=== PATIENT | male | born 1980 | race Caucasian/White ===

== ENCOUNTER 2016-05-19 14:49 | Emergency (ER) | payer MEDICAID ==
[2016-05-19] MEDS ORDERED: Morphine 10 MG/ML Syringe IVPUSH ONE ×3 (15:01→18:07)
[2016-05-19] MEDS ORDERED: Ondansetron 4 MG/2 ML SDV IVPUSH ONE (15:02)
[2016-05-19] MEDS ORDERED: Pantoprazole 40 MG Vial IVPUSH ONE (15:02)
[2016-05-19] MEDS: Sodium Chloride 0.9% 10 ML Syringe FLUSH PRN ×2 (15:12→18:26)
[2016-05-19 15:25] LABS: CHLORIDE,CL 104 mmol/L (98-107); SODIUM,NA 139 mmol/L (136-145)
[2016-05-19] MEDS ORDERED: Iopamidol 612 MG/ML 100 ML Bottle IVPUSH ONE (15:51)
--- NOTE | 2016-05-19 16:07 | EDM.PDOC ---
ED HPI GENERAL MEDICAL PROBLEM - General Chief Complaint: Chest Pain Stated Complaint: Chest Pain Time Seen by Provider: 05/19/16 14:58 Source of Information: Reports: Patient, EMS, Significant Other History Limitations: Reports: No limitations - History of Present Illness INITIAL COMMENTS - FREE TEXT/NARRATIVE: Patient comes by EMS with complaint of central chest pain. Was sent here by [facility]. Given two Nitro as well as 324mg ASA by EMS. Also received two doses of Fentanyl. Some PVCs noted while en route. Patient says Nitro did not help pain. Noted to have hypotension after NTG. Pain has been present since yesterday. Points to central lower chest area. Says pain does not radiated. Does have SOB which is worse with activity. Says he has coughed up blood at times recently. Some phlegm also. Smoker. 1ppd for 30 years per patient. Eating/drinking/position change do not affect pain. Deep breath makes pain worse. Has felt hot/cold/sweaty at times. No nausea/emesis/diarrhea. No changes. Denies recent illness. No specific fever. No neuro changes. Denies headache. Did see "spots" in vision at times. Does not use ETOH or drugs. No other complaint of pain. No personal history of CAD however has strong family history of CAD. History respiratory infections as well as anxiety/depression. stated afterwards that patient HAS been ill for awhile and has intermittently had bloody stools as well as coughing up blood at times. SOB has been present for quite awhile. Tried an inhaler belonging to a family member and it did not help. Treatments [employer]ATE[employer]: Reports: EKG, IV/IO, Other medication(s), Oxygen, See EMS Report - Related Data Allergies Allergy/AdvReac Type Severity Reaction Status Date / Time Penicillins Allergy Hives Verified 05/19/16 14:58 Home Meds: Home Meds . [No Known Home Meds] 05/19/16 [History] Past Medical History HEENT History: Reports: Impaired vision Other HEENT History: wears glasses Cardiovascular History: Reports: None Respiratory History: Reports: Bronchitis, recurrent, Pneumonia, recurrent Gastrointestinal History: Reports: None Genitourinary History: Reports: None Musculoskeletal History: Reports: Fracture Other Musculoskeletal History: fractured right wrist; fractured left tibial plateau Neurological History: Reports: None Psychiatric History: Reports: Anxiety, Depression, Psych Hospitalization(s) Endocrine/Metabolic History: Reports: None Hematologic History: Reports: None Immunologic History: Reports: None Oncologic (Cancer) History: Reports: None Dermatologic History: Reports: None - Infectious Disease History Infectious Disease History: Reports: Chicken pox - Past Surgical History Head Surgeries/Procedures: Reports: None Respiratory Surgical History: Reports: None GI Surgical History: Reports: None Musculoskeletal Surgical History: Reports: Shoulder surgery Other Musculoskeletal Surgeries/Procedures:: right shoulder decompression Social & Family History - Family History Family Medical History: Noncontributory Cardiac: Reports: Hypertension, [place] Oncologic: Reports: Cervix - Tobacco Use Smoking Status *Q: Current Every Day Smoker Years of Tobacco use: 30 Packs/Tins Daily: 1 Used Tobacco, but Quit: No Second Hand Smoke Exposure: Yes - Alcohol Use Days Per Week of Alcohol Use: 0 - Recreational Drug Use Recreational Drug Use: No Drug Use in Last 12 Months: No - Living Situation & Occupation Living situation: Reports: with family, Occupation: employed ED ROS GENERAL - Review of Systems Review Of Systems: See Below Constitutional: Reports: chills, malaise, diaphoresis, decreased appetite. Denies: fever, weakness, fatigue, weight loss, weight gain HEENT: Reports: Vision change (saw spots ealier at times) Respiratory: Reports: Shortness of Breath, Pleuritic Chest Pain, Cough (smoker) , Sputum, Hemoptysis. Denies: Wheezing Cardiovascular: Reports: Chest pain, Dyspnea on exertion, Lightheadedness (for last few days). Denies: Edema, Palpitations, Syncope GI/Abdominal: Reports: Bloody stool. Denies: Abdominal pain, Diarrhea, Hematemesis, Nausea, Vomiting : Reports: no symptoms Musculoskeletal: Reports: no symptoms Skin: Reports: no symptoms Neurological: Denies: Confusion, Headache, Paresthesia, Syncope, Trouble Speaking, Change in Speech, Gait Disturbance Psychiatric: Reports: No symptoms ED EXAM, GENERAL - Physical Exam Exam: See Below Exam Limited By: No limitations General Appearance: alert, WD/WN, anxious Eye Exam: bilateral eye: EOMI, PERRL Ears: normal external exam, normal canal, hearing grossly normal, normal TMs Nose: normal inspection Throat/Mouth: Normal inspection, Normal lips, Normal oropharynx, Normal voice, No airway compromise Head: atraumatic, normocephalic Neck: normal inspection, supple, non-tender, full range of motion. No: carotid bruit, lymphadenopathy (L), lymphadenopathy (R) Respiratory/Chest: no respiratory distress, lungs clear, no accessory muscle use , chest non-tender, respiratory distress Cardiovascular: normal peripheral pulses, regular rate, rhythm, no edema, no JVD , no murmur Peripheral Pulses: 2+: radial (L), radial (R) GI/Abdominal: soft, tender (mild diffuse TTP, more pronounced LUQ and LLQ). No : no abnormal bruit, no mass, distended, guarding, rigid, rebound (Male) Exam: Deferred Rectal (Males) Exam: Normal rectal tone, Prostate normal, Heme - stool Back Exam: normal inspection Extremities: normal inspection, normal range of motion, non-tender, no pedal edema, normal capillary refill Neurological: alert, oriented, normal cognition, normal reflexes, no motor/ sensory deficits Psychiatric: anxious Skin Exam: Warm, Dry, Intact, Normal color EKG INTERPRETATION EKG Date: 05/19/16 Time: 14:57 Rhythm: other (sinus rhythm. PACs intermittently.) Rate (beats/min): 100 [place]: normal P-wave: present QRS: normal ST-T: normal QT: normal Comparison: NA - no prior EKG EKG Interpretation Comments: No acute changes suggestive of ND/ischemia Course - Vital Signs Last Recorded V/S: Last Vital Signs Temp 37.1 C 05/19/16 14:52 Pulse 76 05/19/16 18:05 Resp 18 05/19/16 18:05 BP 125/90 05/19/16 18:05 Pulse Ox 100 05/19/16 18:05 - Orders/Labs/Meds Orders: Active Orders 24 hr Category Date Time Status EKG Documentation Completion [RC] ASDIRECTED Care 05/19/16 15:01 Active Abdomen Pelvis w Cont [CT] Stat Exams 05/19/16 15:41 Taken Chest w Cont [CT] Stat Exams 05/19/16 15:40 Taken TROPONIN I [CHEM] Stat Lab 05/19/16 18:44 Ordered Sodium Chloride 0.9% [Saline Flush] Med 05/19/16 15:06 Active 10 ml FLUSH ASDIRECTED PRN Medication Orders Sodium Chloride (Saline Flush) 10 ml FLUSH ASDIRECTED PRN PRN Reason: Keep Vein Open Last Admin: 05/19/16 18:26 Dose: 10 ml Admin: 05/19/16 15:12 Dose: 10 ml Labs: Laboratory Tests 05/19/16 05/19/16 05/19/16 Range/Units 14:50 14:50 14:50 WBC 6.5 (4.0-10.2) K/uL RBC 5.62 H (4.33-5.41) M/uL Hgb 16.1 D (13.1-16.8) g/dL Hct 47.4 (39.0-49.0) % MCV 84.3 (84.0-98.0) fL MCH 28.6 (28.2-33.3) pg MCHC 34.0 (31.7-36.0) g/dL RDW 13.6 (11.2-14.1) % Plt Count 198 (150-350) K/uL Neut % (Auto) 56.0 (45.0-80.0) % Lymph % (Auto) 33.0 (10.0-50.0) % [place] % (Auto) 6.1 (2.0-14.0) % Eos % (Auto) 4.4 (0.0-5.0) % Baso % (Auto) 0.5 (0.0-2.0) % Neut # (Auto) 3.65 (1.40-7.00) K/uL Lymph # (Auto) 2.15 (0.50-3.50) K/uL [place] # (Auto) 0.40 (0.00-1.00) K/uL Eos # (Auto) 0.29 (0.00-0.50) K/uL Baso # (Auto) 0.03 (0.00-0.20) K/uL PT (9.8-11.7) SEC INR D-Dimer, Quantitative 165 (0-400) ng/mL Sodium 139 (136-145) mmol/L Potassium 3.9 (3.5-5.1) mmol/L Chloride 104 (98-107) mmol/L Carbon Dioxide 22.6 (21.0-32.0) mmol/L BUN 16 (7-18) mg/dL Creatinine 0.91 (0.51-1.17) mg/dL Est Cr Clr Drug Dosing TNP Estimated GFR (MDRD) > 60 mL/min Glucose 132 H (74-106) mg/dL Lactic Acid (0.4-2.0) mmol/L Calcium 9.1 (8.5-10.1) mg/dL Total Bilirubin 0.5 (0.2-1.0) mg/dL AST 33 (15-37) U/L ALT 51 (12-78) U/L Alkaline Phosphatase 142 H (46-116) IU/L Creatine Kinase 134 (26-308) U/L Creatine Kinase Index 0.4 (0.0-2.5) % CK-MB (CK-2) 0.50 (0.00-3.60) ng/mL Troponin I 0.000 (0.000-0.056) ng/mL Total Protein 8.1 (6.4-8.2) g/dL Albumin 3.9 (3.4-5.0) g/dL Specimen Type Urine Color Urine Appearance Urine pH (5.0-9.0) Ur Specific [place] (1.005-1.030) Urine Protein (NEGATIVE) mg/dL Urine Glucose (UA) (NEGATIVE) mg/dL Urine Ketones (NEGATIVE) mg/dL Urine Occult Blood (NEGATIVE) Urine Nitrite (NEGATIVE) Urine Bilirubin (NEGATIVE) Urine Urobilinogen (0.2-1.0) E.U./dL Ur Leukocyte Esterase (NEGATIVE) Urine RBC /HPF Urine WBC /HPF Ur Epithelial Cells /LPF Urine Bacteria (NONE TO FEW) /HPF Urine Mucus (NEGATIVE) /LPF Urine Opiates Screen (NEGATIVE) Urine Methadone Screen (NEGATIVE) U Acetaminophen Screen (NEGATIVE) Ur Barbiturates Screen (NEGATIVE) Ur Tricyclics Screen (NEGATIVE) Ur Phencyclidine Scrn (NEGATIVE) Ur Amphetamine Screen (NEGATIVE) U Methamphetamines Scrn (NEGATIVE) U Benzodiazepines Scrn (NEGATIVE) U Cocaine Metab Screen (NEGATIVE) U Marijuana (THC) Screen (NEGATIVE) 05/19/16 05/19/16 05/19/16 Range/Units 14:50 14:50 15:37 WBC (4.0-10.2) K/uL RBC (4.33-5.41) M/uL Hgb (13.1-16.8) g/dL Hct (39.0-49.0) % MCV (84.0-98.0) fL MCH (28.2-33.3) pg MCHC (31.7-36.0) g/dL RDW (11.2-14.1) % Plt Count (150-350) K/uL Neut % (Auto) (45.0-80.0) % Lymph % (Auto) (10.0-50.0) % [place] % (Auto) (2.0-14.0) % Eos % (Auto) (0.0-5.0) % Baso % (Auto) (0.0-2.0) % Neut # (Auto) (1.40-7.00) K/uL Lymph # (Auto) (0.50-3.50) K/uL [place] # (Auto) (0.00-1.00) K/uL Eos # (Auto) (0.00-0.50) K/uL Baso # (Auto) (0.00-0.20) K/uL PT 10.5 (9.8-11.7) SEC INR 1.0 D-Dimer, Quantitative (0-400) ng/mL Sodium (136-145) mmol/L Potassium (3.5-5.1) mmol/L Chloride (98-107) mmol/L Carbon Dioxide (21.0-32.0) mmol/L BUN (7-18) mg/dL Creatinine (0.51-1.17) mg/dL Est Cr Clr Drug Dosing Estimated GFR (MDRD) mL/min Glucose (74-106) mg/dL Lactic Acid 3.1 H (0.4-2.0) mmol/L Calcium (8.5-10.1) mg/dL Total Bilirubin (0.2-1.0) mg/dL AST (15-37) U/L ALT (12-78) U/L Alkaline Phosphatase (46-116) IU/L Creatine Kinase (26-308) U/L Creatine Kinase Index (0.0-2.5) % CK-MB (CK-2) (0.00-3.60) ng/mL Troponin I (0.000-0.056) ng/mL Total Protein (6.4-8.2) g/dL Albumin (3.4-5.0) g/dL Specimen Type Urine Color Urine Appearance Urine pH (5.0-9.0) Ur Specific [place] (1.005-1.030) Urine Protein (NEGATIVE) mg/dL Urine Glucose (UA) (NEGATIVE) mg/dL Urine Ketones (NEGATIVE) mg/dL Urine Occult Blood (NEGATIVE) Urine Nitrite (NEGATIVE) Urine Bilirubin (NEGATIVE) Urine Urobilinogen (0.2-1.0) E.U./dL Ur Leukocyte Esterase (NEGATIVE) Urine RBC /HPF Urine WBC /HPF Ur Epithelial Cells /LPF Urine Bacteria (NONE TO FEW) /HPF Urine Mucus (NEGATIVE) /LPF Urine Opiates Screen Positive H (NEGATIVE) Urine Methadone Screen Negative (NEGATIVE) U Acetaminophen Screen Negative (NEGATIVE) Ur Barbiturates Screen Negative (NEGATIVE) Ur Tricyclics Screen Negative (NEGATIVE) Ur Phencyclidine Scrn Negative (NEGATIVE) Ur Amphetamine Screen Negative (NEGATIVE) U Methamphetamines Scrn Negative (NEGATIVE) U Benzodiazepines Scrn Negative (NEGATIVE) U Cocaine Metab Screen Negative (NEGATIVE) U Marijuana (THC) Screen Positive H (NEGATIVE) 05/19/16 05/19/16 Range/Units 15:37 19:00 WBC (4.0-10.2) K/uL RBC (4.33-5.41) M/uL Hgb (13.1-16.8) g/dL Hct (39.0-49.0) % MCV (84.0-98.0) fL MCH (28.2-33.3) pg MCHC (31.7-36.0) g/dL RDW (11.2-14.1) % Plt Count (150-350) K/uL Neut % (Auto) (45.0-80.0) % Lymph % (Auto) (10.0-50.0) % [place] % (Auto) (2.0-14.0) % Eos % (Auto) (0.0-5.0) % Baso % (Auto) (0.0-2.0) % Neut # (Auto) (1.40-7.00) K/uL Lymph # (Auto) (0.50-3.50) K/uL [place] # (Auto) (0.00-1.00) K/uL Eos # (Auto) (0.00-0.50) K/uL Baso # (Auto) (0.00-0.20) K/uL PT (9.8-11.7) SEC INR D-Dimer, Quantitative (0-400) ng/mL Sodium (136-145) mmol/L Potassium (3.5-5.1) mmol/L Chloride (98-107) mmol/L Carbon Dioxide (21.0-32.0) mmol/L BUN (7-18) mg/dL Creatinine (0.51-1.17) mg/dL Est Cr Clr Drug Dosing Estimated GFR (MDRD) mL/min Glucose (74-106) mg/dL Lactic Acid (0.4-2.0) mmol/L Calcium (8.5-10.1) mg/dL Total Bilirubin (0.2-1.0) mg/dL AST (15-37) U/L ALT (12-78) U/L Alkaline Phosphatase (46-116) IU/L Creatine Kinase (26-308) U/L Creatine Kinase Index (0.0-2.5) % CK-MB (CK-2) (0.00-3.60) ng/mL Troponin I 0.000 (0.000-0.056) ng/mL Total Protein (6.4-8.2) g/dL Albumin (3.4-5.0) g/dL Specimen Type Urincc Urine Color Dark yellow Urine Appearance Clear Urine pH 7.0 (5.0-9.0) Ur Specific [place] 1.020 (1.005-1.030) Urine Protein 30 H (NEGATIVE) mg/dL Urine Glucose (UA) Negative (NEGATIVE) mg/dL Urine Ketones Negative (NEGATIVE) mg/dL Urine Occult Blood Negative (NEGATIVE) Urine Nitrite Negative (NEGATIVE) Urine Bilirubin Negative (NEGATIVE) Urine Urobilinogen 0.2 (0.2-1.0) E.U./dL Ur Leukocyte Esterase Negative (NEGATIVE) Urine RBC 0-5 /HPF Urine WBC 0-5 /HPF Ur Epithelial Cells Few /LPF Urine Bacteria Few (NONE TO FEW) /HPF Urine Mucus Many H (NEGATIVE) /LPF Urine Opiates Screen (NEGATIVE) Urine Methadone Screen (NEGATIVE) U Acetaminophen Screen (NEGATIVE) Ur Barbiturates Screen (NEGATIVE) Ur Tricyclics Screen (NEGATIVE) Ur Phencyclidine Scrn (NEGATIVE) Ur Amphetamine Screen (NEGATIVE) U Methamphetamines Scrn (NEGATIVE) U Benzodiazepines Scrn (NEGATIVE) U Cocaine Metab Screen (NEGATIVE) U Marijuana (THC) Screen (NEGATIVE) Meds: Medications Generic Name Dose Route Start Last Admin Trade Name Freq PRN Reason Stop Dose Admin Sodium Chloride 10 ml 05/19/16 15:06 05/19/16 18:26 Saline Flush FLUSH 10 ml ASDIRECTED PRN Administration Keep Vein Open Discontinued Medications Generic Name Dose Route Start Last Admin Trade Name Freq PRN Reason Stop Dose Admin Sodium Chloride 1,000 mls @ 999 mls/hr 05/19/16 16:08 05/19/16 16:15 Normal Saline IV 05/19/16 17:08 999 mls/hr .BOLUS ONE Administration Iopamidol 100 ml 05/19/16 15:51 05/19/16 16:54 Isovue-300 (61%) IVPUSH 05/19/16 15:52 100 ml ONETIME ONE Administration Morphine Sulfate 5 mg 05/19/16 15:01 05/19/16 15:10 Morphine IVPUSH 05/19/16 15:02 5 mg ONETIME ONE Administration Morphine Sulfate 5 mg 05/19/16 16:07 05/19/16 16:11 Morphine IVPUSH 05/19/16 16:08 5 mg ONETIME ONE Administration Morphine Sulfate 5 mg 05/19/16 18:07 05/19/16 18:25 Morphine IVPUSH 05/19/16 18:08 5 mg ONETIME ONE Administration Ondansetron HCl 4 mg 05/19/16 15:02 05/19/16 15:09 Zofran IVPUSH 05/19/16 15:03 4 mg ONETIME ONE Administration Pantoprazole Sodium 40 mg 05/19/16 15:02 05/19/16 15:10 Protonix Iv IVPUSH 05/19/16 15:03 40 mg ONETIME ONE Administration - Re-Assessments/Exams Free Text/Narrative Re-Assessment/Exam: 05/19/16 19:[address] scan of chest/abdomen to rule out dissection based on his exhibited amount of pain upon arrival as well as giving history of coughing up blood/passing blood in stool. Negative reading at 18:15 per radiology. Labs overall unremarkable except for lactic acid 3.1 Patient received intermittent morphine doses. Noted to have improved respiratory rate/bp/heart rate. Appeared more comfortable and relaxed but would still rate pain as a 7 on scale of 1-10. At this point in time given the persistence of the pain complaint, strong family history of CAD, the elevated lactic acid, and history of coughing up the bloody mucus and passing blood in stools, [facility] was contacted. Patient was accepted for admission to [facility] by . Second troponin requested at 1900. Patient told of plan to go to [facility]. At this point in time he said he would refuse to go by EMS. Risks outlined to patient, including continued possibility that this could be cardiac-related or be caused by some other serious problem given the elevated lactic acid. Patient still said he would refuse EMS transfer and was willing to sign AMA and go home and get his own ride to [facility]. Free Text/Narrative Re-Assessment/Exam: 05/19/16 19:33 Second troponin negative. Patient says he will go to [facility] but will go by private vehicle only. Refuses EMS transport. VS remained improved. Patient more comfortable. Departure - Departure Time of Disposition: 19:34 Disposition: DC/Tfer to Acute Hospital 02 Condition: good Clinical Impression: Atypical chest pain Abdominal pain Qualifiers: Abdominal location: generalized Qualified Code(s): R10.84 - Generalized abdominal pain Referrals: Angus Jeffries PA [Primary Care Provider] - Forms: ED Department Discharge, Interfacility Transfer EMTALA Additional Instructions: Drive directly to [facility]. They are waiting for you. Do not stop along the way to get food/drink or otherwise delay your trip. - My Orders Last 24 Hours: My Active Orders 05/19/16 15:01 EKG Documentation Completion [RC] ASDIRECTED 05/19/16 15:06 Sodium Chloride 0.9% [Saline Flush] 10 ml FLUSH ASDIRECTED PRN 05/19/16 15:40 Chest w Cont [CT] Stat 05/19/16 15:41 Abdomen Pelvis w Cont [CT] Stat 05/19/16 18:44 TROPONIN I [CHEM] Stat - Assessment/Plan Last 24 Hours: My Active Orders 05/19/16 15:01 EKG Documentation Completion [RC] ASDIRECTED 05/19/16 15:06 Sodium Chloride 0.9% [Saline Flush] 10 ml FLUSH ASDIRECTED PRN 05/19/16 15:40 Chest w Cont [CT] Stat 05/19/16 15:41 Abdomen Pelvis w Cont [CT] Stat 05/19/16 18:44 TROPONIN I [CHEM] Stat
[2016-05-19] MEDS ORDERED: Sodium Chloride 0.9% 1,000 ML IV ONE (16:08)
[2016-05-19 21:12] VITALS: BP 135/93
== END 2016-05-19 20:08 ==
LOC: LL.ED 14:49
DX: R07.89 Other chest pain (principal); R10.84 Generalized abdominal pain; H54.7 Unspecified visual loss; Z88.0 Allergy status to penicillin; Z98.890 Other specified postprocedural states
CPT/HCPCS: 36415; 71260; 74177; 80053; 80305; 81001; 82272; 82550; 82553; 83605; 84484; 85025; 85379; 85610; 93005; 96360; 96361; 96374; 96375; 96376; 99285; C9113; J2270; J2405; J7030; J7050; Q9967

== ENCOUNTER 2016-11-19 15:04 | Emergency (ER) | payer MEDICAID ==
[2016-11-19 15:13] VITALS: BP 122/82
[2016-11-19] MEDS ORDERED: LORazepam 2 MG/ML MDV IM ONE (15:28)
[2016-11-19 15:39] LABS: O2 DELIVERY DEVICE ROOM AIR; O2 SATURATION ARTERIAL 96 % (95-98); PCO2 ARTERIAL 30 mmHG (35-45); PO2 ARTERIAL 76 mmHG (80-105)
[2016-11-19 15:40] LABS: BASE EXCESS ARTERIAL -2 mmol/L (-2-3)
--- NOTE | 2016-11-19 15:45 | EDM.PDOC ---
ED HPI GENERAL MEDICAL PROBLEM - General Chief Complaint: General Stated Complaint: SOB Time Seen by Provider: 11/19/16 15:20 Source of Information: Reports: Patient History Limitations: Reports: No Limitations, Respiratory Distress (Patient seen with episodes of tachypnea hyperventilation) - History of Present Illness INITIAL COMMENTS - FREE TEXT/NARRATIVE: Patient is a 36-year-old who seen in the emergency room with chief complaint of difficulty breathing hyperventilating states that he just woke up about half an hour ago like this and was brought in for evaluation generalized aches and pains nonspecific occasionally coughing sore throat diaphoresis Onset: Sudden Duration: Hour(s): (One hour ago), Improving Location: Reports: Chest Quality: Reports: Pressure Severity: Moderate Improves with: Reports: Rest Worsens with: Reports: Movement Context: Reports: Sick Contact Associated Symptoms: Reports: Cough, Diaphoresis, Shortness of Breath, Other ( Hyperventilating) Treatments 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 Generalized Pain Score (Numeric/FACES): 10 - Related Data Allergies Allergy/AdvReac Type Severity Reaction Status Date / Time Penicillins Allergy Hives Verified 05/19/16 14:58 Home Meds: Home Meds . [No Known Home Meds] 05/19/16 [History] Past Medical History HEENT History: Reports: Impaired Vision Other HEENT History: wears glasses Cardiovascular History: Reports: None Respiratory History: Reports: Bronchitis, Recurrent, Pneumonia, Recurrent Gastrointestinal History: Reports: None Genitourinary History: Reports: None Musculoskeletal History: Reports: Fracture Other Musculoskeletal History: fractured right wrist; fractured left tibial plateau Neurological History: Reports: None Psychiatric History: Reports: Anxiety, Depression, Psych Hospitalization(s) Other Psychiatric History: history of IV opiate use, none recent Endocrine/Metabolic History: Reports: None Hematologic History: Reports: None Immunologic History: Reports: None Oncologic (Cancer) History: Reports: None Dermatologic History: Reports: None - Infectious Disease History Infectious Disease History: Reports: Chicken Pox - Past Surgical History Musculoskeletal Surgical History: Reports: Shoulder Surgery Social & Family History - Family History Family Medical History: Noncontributory Cardiac: Reports: Hypertension, [place] Oncologic: Reports: Cervix - Tobacco Use Smoking Status *Q: Current Every Day Smoker Years of Tobacco use: 30 Packs/Tins Daily: 1 Used Tobacco, but Quit: No Second Hand Smoke Exposure: Yes - Caffeine Use Caffeine Use: Reports: None - Alcohol Use Days Per Week of Alcohol Use: 0 - Recreational Drug Use Recreational Drug Use: No Drug Use in Last 12 Months: No - Living Situation & Occupation Living situation: Reports: with Family, Occupation: Employed ED ROS GENERAL - Review of Systems Review Of Systems: See Below Constitutional: Reports: Diaphoresis HEENT: Reports: No Symptoms Respiratory: Reports: Shortness of Breath Cardiovascular: Reports: No Symptoms Endocrine: Reports: No Symptoms GI/Abdominal: Reports: No Symptoms : Reports: No Symptoms Musculoskeletal: Reports: Joint Pain, Muscle Pain, Muscle Stiffness Skin: Reports: No Symptoms, Diaphoresis Neurological: Reports: Numbness, Tingling, Change in Speech Psychiatric: Reports: Anxiety ED EXAM, GENERAL - Physical Exam Exam: See Below Exam Limited By: Respiratory Distress General Appearance: Alert, WD/WN, Anxious, Moderate Distress Ears: Normal External Exam, Normal Canal, Hearing Grossly Normal, Normal TMs Ear Exam: Bilateral Ear: Auricle Normal, Canal Normal, TM normal Nose: Normal Inspection, Normal Mucosa, No Blood Throat/Mouth: Normal Inspection, Normal Lips, Normal Teeth, Normal Gums, Normal Oropharynx, Normal Voice, No Airway Compromise Head: Atraumatic, Normocephalic Neck: Normal Inspection, Supple, Non-Tender, Full Range of Motion Respiratory/Chest: Decreased Breath Sounds, Wheezing Cardiovascular: Normal Peripheral Pulses, Regular Rate, Rhythm, No Edema, No Gallop, No JVD, No Murmur, No Rub GI/Abdominal: Normal Bowel Sounds, Soft, Non-Tender, No Organomegaly, No Distention, No Abnormal Bruit, No Mass (Male) Exam: No Hernia Rectal (Males) Exam: Deferred Back Exam: Normal Inspection, Full Range of Motion, NT Extremities: Normal Inspection, Normal Range of Motion, Non-Tender, Normal Capillary Refill, No Pedal Edema Neurological: Alert, Oriented, CN II-XII Intact, Normal Cognition, Normal Gait, Normal Reflexes, No Motor/Sensory Deficits Psychiatric: Normal Affect, Normal Mood Skin Exam: Warm, Dry, Intact, Normal Color, No Rash Course - Vital Signs Last Recorded V/S: Last Vital Signs Temp 98.8 F 11/19/16 15:06 Pulse 92 11/19/16 15:06 Resp 40 H 11/19/16 15:06 BP 122/82 11/19/16 15:06 Pulse Ox 100 11/19/16 15:06 - Orders/Labs/Meds Orders: Active Orders 24 hr Category Date Time Status CXR [Chest 2V] [CR] Stat Exams 11/19/16 15:26 Ordered ABG [BLOOD GAS ARTERIAL] [BG] Stat Lab 11/19/16 15:22 Ordered BASIC METABOLIC PANEL,BMP [CHEM] Stat Lab 11/19/16 15:22 Ordered CBC WITH AUTO DIFF [HEME] Stat Lab 11/19/16 15:22 Ordered LORazepam [Ativan] Med 11/19/16 15:28 Once 1 mg IM ONETIME ONE Departure - Departure Time of Disposition: 16:39 Disposition: Home, Self-Care 01 Condition: Good Clinical Impression: Respiratory alkalosis, Anxiety - Discharge Information Referrals: Angus Jeffries PA [Primary Care Provider] - Care Plan Goals: Patient treated aggressively was given albuterol treatment which helped him tremendously his initial pH was 7.4748 with a CO2 of 30 ED bleed into a bag while sharp from at this time he will be discharged he is to continue on his medications at home as ordered follow-up with primary as needed return to the ER if worsen - My Orders Last 24 Hours: My Active Orders 11/19/16 15:22 ABG [BLOOD GAS ARTERIAL] [BG] Stat BASIC METABOLIC PANEL,BMP [CHEM] Stat CBC WITH AUTO DIFF [HEME] Stat 11/19/16 15:26 CXR [Chest 2V] [CR] Stat 11/19/16 15:28 LORazepam [Ativan] 1 mg IM ONETIME ONE - Assessment/Plan Last 24 Hours: My Active Orders 11/19/16 15:22 ABG [BLOOD GAS ARTERIAL] [BG] Stat BASIC METABOLIC PANEL,BMP [CHEM] Stat CBC WITH AUTO DIFF [HEME] Stat 11/19/16 15:26 CXR [Chest 2V] [CR] Stat 11/19/16 15:28 LORazepam [Ativan] 1 mg IM ONETIME ONE
[2016-11-19] MEDS ORDERED: Albuterol 0.021% 0.63 MG/3 ML Neb Soln NEB ONE (15:46)
[2016-11-19 16:00] LABS: CHLORIDE,CL 106 mmol/L (98-107); SODIUM,NA 142 mmol/L (136-145)
== END 2016-11-19 17:00 | disposition home or self-care (01) ==
LOC: LL.ED 15:04
DX: E87.3 Alkalosis (principal); F41.9 Anxiety disorder, unspecified; F17.210 Nicotine dependence, cigarettes, uncomplicated; Z88.0 Allergy status to penicillin
CPT/HCPCS: 36415; 71020; 80048; 82803; 85025; 94640; 99284